=== PATIENT | male | born 1970 | race Caucasian/White ===

== ENCOUNTER 2017-04-24 16:40 | Emergency (ER) | payer MEDICAID, OTHER ==
[2017-04-24] MEDS ORDERED: SILVER SULFADIAZINE 25 GM CREAM TOP ONE (17:06)
[2017-04-24] MEDS ORDERED: HYDROMORPHONE HCL 2 MG/ML VIAL IM ONE (17:06)
[2017-04-24] MEDS ORDERED: ONDANSETRON HCL IV 4 MG/2 ML VIAL IM ONE (17:06)
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
== END 2017-04-24 17:37 | disposition home or self-care (01) ==
LOC: ER 16:40
DX: T23.202A Burn of second degree of left hand, unspecified site, initial encounter (principal); X17.XXXA Contact with hot engines, machinery and tools, initial encounter; F17.200 Nicotine dependence, unspecified, uncomplicated
CPT/HCPCS: 16020 ×2; 99283 ×2; 96372; J2405; J1170